=== PATIENT | male | born 1960 | race Caucasian/White ===

== ENCOUNTER → 2021-09-26 08:19 | Outpatient (BNVA) | payer BC, SELFPAY | PROVIDERS: PCP Internal Medicine; Visit Provider Nurse Practitioner Family | DX: Z13.89 Encounter for screening for other disorder (principal) ==

== ENCOUNTER → 2022-10-03 14:21 | Outpatient (BNVA) | payer BC, SELFPAY | PROVIDERS: PCP Internal Medicine; Visit Provider Nurse Practitioner Family ==

== ENCOUNTER 2023-07-07 10:57 | Outpatient (AMB) | payer BC, SELFPAY ==
--- NOTE | 2023-07-07 11:15 | MHC.OFFVIS ---
Intake Vital Signs 07/07/23 11:20 Height 5 ft 9 in Weight 227 lb 8 oz BMI 33.6 BP 140/80 H Blood Pressure Location Lt brachial Position Sitting Pulse 65 Pulse Source Pulse Oximeter Pulse Oximetry (%) 95 Oxygen Delivery Method Room Air Intake Visit Reasons: 9m follow up - LVM w/address Intake Note: Patient presents for 9 month f/u. Allergies codeine Allergy (Mild, Verified 07/07/23 11:19) Hives HPI HPI Comments History of Present Illness Details 63-yr-old male patient presents for follow-up of JS on CPAP. Patient denies any significant interval medical history changes. Pt is compliant with his CPAP. He continues to have good nights and bad nights with his CPAP, but sleeps well overall. Pt reports the stuffy nose has been better lately. He had feeling of the ear block, and ENT evaluated, and is recommended to try Flonase, Flonase helps to reduce the fluid in his ear. Pt states that he is alert and has energy during daytime. He does daily exercise, walking and wt lifting. CPAP compliance and therapy response (04/02/23-06/29/22) reviewed. He is on CPAP 14 cmH2O; overall usage of 92%, the average usage hours 6 hours and residual AHI of 4.1/hr. His CPAP is about 6 years old, and the heating chamber does not work well. Pt reports he gained few pounds. [facility] Medical History HLD (hyperlipidemia) Surgical History History of hernia surgery Family History Sister Kidney stones Type II diabetes mellitus Social History Household Members: Spouse Alcohol intake: current Alcohol intake frequency: a few times a week Alcohol type: beer Patient Tobacco Use Status: Never used Tobacco Substance Use Type: Marijuana Review of Systems Const All systems reviewed & are unremarkable except as noted in HPI and below Physical Exam Vital Signs: Last Vital Signs Pulse 65 07/07/23 11:20 BP 140/80 H 07/07/23 11:20 Pulse Ox 95 07/07/23 11:20 Oxygen Delivery Method Room Air 07/07/23 11:20 BMI result Body Mass Index 33.6 Const General: no acute distress Orientation/consciousness: patient oriented x3 Resp Effort & Inspection: able to speak in complete sentences Neuro General: patient oriented x3 Psych Mental Status: mental status grossly normal Speech and movement: Clear speech present Attitude: cooperative Assessment & Plan Assessment & Plan (1) JS (obstructive sleep apnea): Comment: The home sleep study was consistent with a severe degree of obstructive sleep apnea with an AHI of 57/hr and oxygen santos at 75%. The last sleep study was on 06/17/2018. Code(s): G47.33 - Obstructive sleep apnea (adult) (pediatric) Plan Continue to use current CPAP at [id number] as patient experiences good clinical effects. Stressed compliance, use CPAP nightly and more than 4 hours. New CPAP prescription sent to [facility]. Coding Level of Care Code Est Pt Level 3 (88082) Diagnoses JS (obstructive sleep apnea) G47.33
[2023-07-07 11:20] VITALS: BP 140/80; PULSE 65; O2SAT 95; BMI 33.6
== END 2023-07-07 11:37 | disposition home or self-care (01) ==
PROVIDERS: PCP Internal Medicine; Visit Provider Nurse Practitioner Family
DX: G47.33 Obstructive sleep apnea (adult) (pediatric) (principal)
CPT/HCPCS: 99213

== ENCOUNTER → 2023-07-07 10:57 | Outpatient (BNVA) | payer BC, SELFPAY | PROVIDERS: PCP Internal Medicine; Visit Provider Nurse Practitioner Family ==

== ENCOUNTER 2024-07-05 09:24 | Outpatient (AMB) | payer BC, SELFPAY ==
--- NOTE | 2024-07-05 09:35 | MHC.OFFVIS ---
Vital Signs 07/05/24 09:36 Height 5 ft 9 in Weight 224 lb BMI 33.1 BP 130/84 Blood Pressure Location Lt brachial Position Sitting Pulse 80 Pulse Source Pulse Oximeter Pulse Oximetry (%) 94 Oxygen Delivery Method Room Air Intake Visit Reasons: 1 yr f/u Intake Note: Patient presents follow up JS. Compliance in chart Co Founder And Director Required: No Accompanied by: Self / Same As Patient Allergies codeine Allergy (Mild, Verified 07/05/24 09:39) Hives Medication List - Last Reconciled 07/05/24 by ALEX Rucker ascorbate calcium (vitamin C) 500 mg PO DAILY atorvastatin 40 mg PO BEDTIME coenzyme Q10 (Co Q-10) PO DAILY epinephrine IM ibuprofen 600 mg PO Q6H PRN mometasone 0.1% appl topical BEDTIME omega [id number]-jjg-fish oil 100-160-1,000 mg (Fish Oil) caps PO semaglutide (weight loss) (Wegovy) 0.25 mg subcut QWEEK sodium polystyrene sulfonate 15 grams PO DAILY [Tumeric PO] HPI Comments Details: Chief Complaint The patient reports right ear moisture and follow-up for obstructive sleep apnea management. Interval History - The patient is a 64-year-old male presenting with follow-up for obstructive sleep apnea management . - Patient also, would like to discuss recurrent, right tympanic membrane moisture issues, which ENT had told him was secondary to his CPAP pressure settings. - Obstructive Sleep Apnea: The patient has been compliant with CPAP therapy, achieving 96% usage greater than 4 hours. Rare breaks from CPAP use are noted. The average pressure setting is at 14 cm H2O with EPR3. The patient reports no significant changes in sleep apnea symptoms. Overall sleeps well with CPAP, and has good daytime energy. - Tympanic Membrane Moisture: The patient continues to experience right ear moisture with associated odor. Previous recommendations included Flonase use, which provided minimal relief over the past year. No ear drops were given previously. He is just recently started water aerobic exercise with his . He has done this before, but not in the last year. He does not typically use earplugs when doing this. Sleep: - Typical bedtime routine involves starting sleep on the back due to CPAP use and eventually shifting to the right side. CPAP review: Does patient have sufficient PAP supplies? Yes Does patient clean PAP supplies on a regular basis? Yes Does the patient use distilled water in their PAP machine water reservoir? Yes PAP compliance report reviewed. Compliance report date range: March 30 2024 through June 27 2024 Overall usage: 96 percent Usage greater than 4 hours: 96 percent PAP setting: CPAP 14 cmH2O with EPR3 Average usage on days used: 6 hours and 1 minute Average mask leakage: 0.4 LPM Residual AHI: 4.4 per hour PFSH Medical History HLD (hyperlipidemia) Surgical History History of hernia surgery Family History Sister Kidney stones Type II diabetes mellitus Social History Household Members: Spouse Alcohol intake: current Alcohol intake frequency: a few times a week Alcohol type: beer Patient Tobacco Use Status: Never used Tobacco Substance Use Type: Marijuana Physical Exam Vital Signs: Last Vital Signs Pulse 80 07/05/24 09:36 BP 130/84 07/05/24 09:36 Pulse Ox 94 07/05/24 09:36 Oxygen Delivery Method Room Air 07/05/24 09:36 BMI result Body Mass Index 33.1 Const General: no acute distress Orientation/consciousness: patient oriented x3 HEENT Other: - right TM intact. Mild erythema and inflammation in right external Vlad now. No pain elicited from manipulation of right external ear. -left TM intact. External ear canal intact. Resp Effort & Inspection: able to speak in complete sentences Neuro General: patient oriented x3 Psych Mental Status: mental status grossly normal Speech and movement: Clear speech present Attitude: cooperative Assessment & Plan Assessment & Plan (1) JS (obstructive sleep apnea): Comment: The home sleep study was consistent with a severe degree of obstructive sleep apnea with an AHI of 57/hr and oxygen santos at 75%. The last sleep study was on 06/17/2018. Code(s): G47.33 - Obstructive sleep apnea (adult) (pediatric) Category: Medical (2) Infection of right external ear: Code(s): H60.391 - Other infective otitis externa, right ear Category: Medical Plan Discussion Notes During the consultation, I reviewed the patient's CPAP compliance report, indicating 96% usage over a three-month period with a residual AHI of 4.4. I discussed the patient's persistent right ear moisture and the previous use of Flonase, which provided minimal relief. I proposed a trial of antibiotic ear drops to manage possible external otitis and suggested using an earplug during swimming to prevent further moisture accumulation. We addressed the possibility of adjusting CPAP settings slightly, if needed, but agreed to delay this until seeing the effects of the ear drops. I discussed options for managing ear symptoms and emphasized avoiding Q-tip use in the ears. The patient was informed about the importance of consistent CPAP use and reevaluating if ear symptoms persist. Patient was informed and verbally consented to the use of an ambient scribe for clinic note documentation during this visit. Plan Patient right external ear canal infection/inflammation:: - Initiate ciprofloxacin-dexamethasone 0.3-0.1 %ear drops to address the right ear moisture, prescribing four drops twice daily. - Recommend earplug use when swimming to prevent moisture accumulation. - Avoid Q-tips in ears to reduce irritation risk. Monitor symptoms and compliance with CPAP. Adjust CPAP settings if no improvement in ear symptoms with current intervention. - Update us in one week- if no improvement, which time we will consider trial of antifungal drops and/or addressing CPAP settings. For JS: - Continue to use CPAP 14 H2O nightly with a goal of greater than 4 hours nightly, as patient is experiencing good clinical effect from use. - Clean and change PAP supplies routinely, including filters, masks, tubing, and water reservoir. - Use distilled water in PAP water resorvoir. - follow up in one year or sooner as needed.. Medications: New ciprofloxacin-dexamethasone 0.3-0.1 % 4 drps otic (ear) right Q12H 7.5 mL 1RF 7 days Coding Level of Care Code Est Pt Level 4 (22434) Diagnoses JS (obstructive sleep apnea) G47.33 Infection of right external ear H60.391
[2024-07-05 09:36] VITALS: BP 130/84; PULSE 80; O2SAT 94; BMI 33.1
== END 2024-07-05 10:24 | disposition home or self-care (01) ==
PROVIDERS: PCP Internal Medicine; Visit Provider Nurse Practitioner Family
DX: G47.33 Obstructive sleep apnea (adult) (pediatric) (principal); H60.391 Other infective otitis externa, right ear
CPT/HCPCS: 99214